=== PATIENT | female | born 1970 | race Hispanic/Latino ===

== ENCOUNTER 2021-12-07 14:32 | Emergency (ER) | payer SELFPAY ==
[2021-12-07 14:51] VITALS: BP 152/69; PULSE 82; RESP 20; TEMP 36.9; O2SAT 100
[2021-12-07 15:17] LABS: Add Manual Diff / Slide Review NO; Basophils Absolute Auto 0 /uL (0-100); Basophils Percent Auto 0.7 % (0-2); Eosinophils Absolute Auto 200 /uL (0-450); Eosinophils Percent Auto 3.2 % (2-4); Hematocrit 38.3 % (36-46); Hemoglobin 13.3 g/dL (12.0-16.0); Lymphocytes Absolute Auto 2500 /uL (1100-4500); Mean Corpuscular HGB Conc 34.9 % (30-36); Mean Corpuscular Hemoglobin 31.2 PG (26-34); Mean Corpuscular Volume 89.6 fL (80-100); Monocytes Absolute Auto 500 /uL (0-900); Monocytes Percent Auto 9.9 % (3-14); Neutrophils Absolute Auto 1900 /uL (1500-7000); Neutrophils Percent Auto 37.2 % (50-75); Platelet Count 209 X10^3/uL (150-400); Red Blood Cell Count 4.27 X10^6/uL (4.0-5.2)
[2021-12-07 15:28] LABS: Alanine Aminotransferase 32 IU/L (<35); Albumin 4.5 g/dL (3.5-5.0); Albumin Globulin Ratio 1.3 (1.0-2.8); Alkaline Phosphatase 56 U/L (38-126); Aspartate Aminotransferase 31 IU/L (14-36); Bilirubin Total 0.5 mg/dL (0.2-1.3); Blood Urea Nitrogen 20 mg/dL (7-17); Calcium 9.9 mg/dL (8.4-10.2); Carbon Dioxide 30 mmol/L (22-32); Chloride 103 mmol/L (98-107); Estimated Glomerular Filt Rate 58.2 mL/min (>60); Globulin 3.5 g/dL (1.7-4.1); Glucose 154 mg/dL (70-100); HEMOLYSIS < 15 (0-50); Lipase 205 U/L (23-300); Sodium 141 mmol/L (137-145)
--- NOTE | 2021-12-07 18:11 | ED_ITS ---
HPI - General Adult General Chief complaint: Abdominal Pain Stated complaint: Pain in Rt Side Time Seen by Provider: 12/07/21 18:11 Source: patient Mode of arrival: Ambulatory History of Present Illness HPI narrative: 51-year-old woman postmenopausal, history of hypertension controlled with metoprolol presents with 4 days of right upper quadrant pain radiating through to her back and the left upper quadrant. she is post cholecystectomy. She describes the pain as intermittent associated with a sense of being bloated and heavy through her abdomen. No fevers but she does have chills she notes that the pain is worse after eating and is associated with nausea but she has not actually had any emesis. She has not been particularly constipated but does have occasional hemorrhoids. Denies any blood in vomitus and has not recently h ad any black stools. She is having no chest pain, palpitations, headaches, focal neurologic findings. Related Data Home Medications Medication Instructions Recorded Confirmed norgestimate 0.25 mg-ethinyl 1 tab PO QDAY #0 12/05/17 estradiol 35 mcg tablet (Sprintec (28)) Allergies Allergy/AdvReac Type Severity Reaction Status Date / Time No Known Allergies Allergy Uncoded 02/08/18 12:07 Review of Systems Review of Systems Narrative: Remainder of complete review of systems is otherwise unremarkable except for that included in the HPI. Patient History Medical History (Updated 12/07/21 @ 20:53 by Cheryl Rowland MD) Hypertension Kidney stone on left side Surgical History (Updated 12/07/21 @ 18:39 by Cheryl Rowland MD) Status post cholecystectomy Social History Smoking Status: Never smoker Smoking Status: Never smoker Exam Initial Vital Signs Initial Vital Signs: Vital Signs Temperature 98.5 F 12/07/21 14:51 Pulse Rate 82 12/07/21 14:51 Respiratory Rate 20 12/07/21 14:51 Blood Pressure 152/69 H 12/07/21 14:51 Pulse Oximetry 100 12/07/21 14:51 General: Healthy appearing, in no acute distress. Able to give a complete and coherent history. Well-nourished well-developed HEENT: Moist mucous membranes, normal sclera with reactive pupils, Neck: No JVD, supple Respiratory: Lungs are clear to auscultation, no wheezing no rales no rhonchi. Full and symmetrical air movement Cardiac: Regular rate and rhythm no murmurs no bruits Abdomen: Soft, mild tenderness in the right upper quadrant without rebound or guarding. Good bowel tones, no flank pain Skin: Warm and dry, no rashes Neurologic: Grossly neurologically intact with no obvious asymmetries or abno rmalities Extremities: No trauma, well perfused Psych: Cooperative, appropriate insight and affect Course Orders Ordered: ED Orders 12/07/21 14:55 EKG-12 Lead Stat 12/07/21 15:02 Complete Blood Count AUTO DIFF Stat Comprehensive Metabolic Panel Stat Lipase Stat 12/07/21 18:39 CT abdomen pelvis w con Stat 12/07/21 20:16 UA dip and micro [Urinalysis and Microscopic] Stat Discontinued Medications Magnesium Citrate (Magnesium Citrate 300 Ml Solution) 300 ml PO NOW ONE Stop: 12/07/21 20:52 Vital Signs Vital signs: Vital Signs - 8 hr 12/07/21 14:51 Temperature 98.5 F Pulse Rate 82 Respiratory Rate 20 Blood Pressure 152/69 H Pulse Oximetry 100 Medical Decision Making Lab Data Result diagrams: 12/07/21 15:02 12/07/21 15:02 Labs: Lab Results 12/07/21 12/07/21 12/07/21 Range/Units 15:02 15:02 20:16 WBC 5.0 (4.5-11.0) X10^3/uL RBC 4.27 (4.0-5.2) X10^6/uL Hgb 13.3 (12.0-16.0) g/dL Hct 38.3 (36-46) % MCV 89.6 (80-100) fL MCH 31.2 (26-34) PG MCHC 34.9 (30-36) % RDW 13.0 (11.6-14.8) % Plt Count 209 (150-400) X10^3/uL Neut % (Auto) 37.2 L (50-75) % Lymph % (Auto) 49.0 H (25-40) % [place] % (Auto) 9.9 (3-14) % Eos % (Auto) 3.2 (2-4) % Baso % (Auto) 0.7 (0-2) % Neut # (Auto) 1900 (9297-3666) /uL Lymph # (Auto) 2500 (5626-7329) /uL [place]ancock # (Auto) 500 (0-900) /uL Eos # (Auto) 200 (0-450) /uL Baso # (Auto) 0 (0-100) /uL Sodium 141 (137-145) mmol/L Potassium 4.0 (3.4-5.1) mmol/L Chloride 103 (98-107) mmol/L Carbon Dioxide 30 (22-32) mmol/L BUN 20 H (7-17) mg/dL Creatinine 1.00 (0.52-1.04) mg/dL Estimated GFR 58.2 L (>60) mL/min BUN/Creatinine Ratio 20.0 (6-22) Glucose 154 H (70-100) mg/dL Calcium 9.9 (8.4-10.2) mg/dL Total Bilirubin 0.5 (0.2-1.3) mg/dL AST 31 (14-36) IU/L ALT 32 (<35) IU/L Alkaline Phosphatase 56 (38-126) U/L Total Protein 8.0 (6.3-8.2) g/dL Albumin 4.5 (3.5-5.0) g/dL Globulin 3.5 (1.7-4.1) g/dL Albumin/Globulin Ratio 1.3 (1.0-2.8) Lipase 205 (23-300) U/L Urine Color Yellow Urine Appearance Clear Urine pH 5.5 (4.5-8.0) Ur Specific [place] 1.025 (1.000-1.035) Urine Protein Negative (Negative) Urine Glucose (UA) Trace H (Negative) g/dL Urine Ketones Negative (NEGATIVE) Urine Occult Blood Trace-intact (Negative) Urine Nitrate Negative (Negative) Urine Bilirubin Negative (NEGATIVE) Urine Urobilinogen 0.2 (0.2) E.U./dL Ur Leukocyte Esterase Negative (NEGATIVE) Urine RBC None seen (0-5/HPF) Urine WBC None seen (0-5/HPF) Urine Bacteria None seen (None) Ur Culture Indicated? Cult not indicated Point of Care Testing Test Results Negative Urine Dip Bedside Urine Glucose Negative Bedside Urine Bilirubin - Negative Bedside Urine Ketone - Negative Urine Specific [place] 1.030 Bedside Urine Occult Blood - Negative Bedside Urine pH 6.0 Bedside Urine Protein +/- 15 Bedside Urine Urobilinogen - Negative Bedside Urine Nitrite - Negative Bedside Urine Leukocytes - Negative Esterase Point of care testing: Point of Care Testing Test Results Negative Urine Dip Bedside Urine Glucose Negative Bedside Urine Bilirubin - Negative Bedside Urine Ketone - Negative Urine Specific [place] 1.030 Bedside Urine Occult Blood - Negative Bedside Urine pH 6.0 Bedside Urine Protein +/- 15 Bedside Urine Urobilinogen - Negative Bedside Urine Nitrite - Negative Bedside Urine Leukocytes - Negative Esterase Imaging Data CT scan - abdomen/pelvis: Radiologist's Impression: FINDINGS:? Image quality:? Excellent.? ? Lung bases:? Left anterior lung base nodule measuring 9 mm diameter. Heart:? No significant findings. ? ABDOMEN: Liver:? Is enlarged and demonstrates diffusely decreased density, indicating fatty infiltration. Gallbladder:? Surgically absent? ? Biliary ducts:? Unremarkable.? ? Pancreas:? Unremarkable.? ? Spleen:? Unremarkable.? ? Adrenal Glands:? Unremarkable.? ? Kidneys and Ureters:? Nonobstructing 4 mm calculus within the inferior pole left kidney.? Renal enhancement within normal limits. ? Stomach and Bowel:? Stomach, small bowel loops, and colon are unremarkable.? Normal appendix. Peritoneum:? No abnormal intraperitoneal fluid.? No free air.? ? Ventral Wall: ? No hernias.? Abdominal Nodes:? No retroperitoneal or mesenteric adenopathy by size criteria.? Vessels:? Aorta is normal in size.? IVC appears collapsed. ? PELVIS: Pelvic Organs:? Unremarkable.? ? Bladder:? Unremarkable.? ? Pelvic Nodes: No enlarged lymph nodes.? Miscellaneous: No hernias are seen. ? ? ? Bones:? Unremarkable.? IMPRESSION:? 1. No explanation for right upper quadrant pain. 2. Normal appendix. 3. Nonobstructing left renal calculus. 4. Collapsed appearing IVC, possibly indicating hypotension.? Clinical correlation recommended. ? ? Dictated by: Desiree Mckeon M.D. on 12/07/2021 at 19:00? ?? MDM Narrative Medical decision making narrative: 51-year-old woman with upper abdominal pain a sense of bloating all for the past 5 days. Lab workup is very reassuring with no evidence of bleeding. She already has her gallbladder and appendix removed. CT scan shows no obvious explanation for her pain. Specifically there is no evidence of colitis, bowel obstruction, kidney stone causing obstruction or hydronephrosis, suggestion of neoplasm or any type of intra-abdominal abscess. She does have of moderate amount of stool throughout the right side of her colon. Will suggest magnesium citrate and see if cleaning her entire colon out helps alleviate her symptoms. Reassurance is given and she is safe for home discharge Discharge Plan Departure Patient Disposition: Home Clinical Impression: Abdominal pain, Constipation Instructions: DI for Abdominal Pain-Adult, DI for Constipation Activity Restrictions/Additional Instructions: Thank you for coming in today You do not have an infection, kidney stone, cancer, diverticulitis or other life threatening abnormality to explain your abdominal pain You do have a lot of stool throughout your colon. I suspect this can be co ntributing to your pain You when you get home, please drink the entire bottle of magnesium citrate and see if cleaning out your colon gets rid of your pain. If you are still having pain after this, please follow-up with your doctor on [facility] I wish you the best Reena por venir hoy No tiene servando infecci?n, c?lculos renales, c?ncer, diverticulitis u otra anomal?a potencialmente mortal que explique rodgers dolor abdominal. Tiene muchas heces en todo el colon. Sospecho que esto puede estar contribuyendo a rodgers dolor. Cuando llegue a casa, gus toda la botella de citrato de magnesio y lulu si la limpieza de rodgers colon elimina rodgers dolor. Si a?n tiene dolor despu?s de esto, orestes un seguimiento con rodgers m?dico en la [place]. te deseo lo mejor Prescriptions: No Action norgestimate-ethinyl estradiol [Sprintec (28)] 1 EACH tablet 1 tab PO QDAY Qty: 0 0RF Referrals: David Carolina MD [Primary Care Provider] -
--- NOTE | 2021-12-07 18:39 | DI.CT.S_ITS ---
PROCEDURE: CT ABDOMEN PELVIS W CON INDICATIONS: Right upper abdominal pain TECHNIQUE: After the administration of intravenous contrast, axial sections acquired from the lung bases to the pubic symphysis. Coronal and sagittal reformats were performed. For radiation dose reduction, the following was used: automated exposure control, adjustment of mA and/or kV according to patient size. COMPARISON: None. FINDINGS: Image quality: Excellent. Lung bases: Left anterior lung base nodule measuring 9 mm diameter. Heart: No significant findings. ABDOMEN: Liver: Is enlarged and demonstrates diffusely decreased density, indicating fatty infiltration. Gallbladder: Surgically absent Biliary ducts: Unremarkable. Pancreas: Unremarkable. Spleen: Unremarkable. Adrenal Glands: Unremarkable. Kidneys and Ureters: Nonobstructing 4 mm calculus within the inferior pole left kidney. Renal enhancement within normal limits. Stomach and Bowel: Stomach, small bowel loops, and colon are unremarkable. Normal appendix. Peritoneum: No abnormal intraperitoneal fluid. No free air. Ventral Wall: No hernias. Abdominal Nodes: No retroperitoneal or mesenteric adenopathy by size criteria. Vessels: Aorta is normal in size. IVC appears collapsed. PELVIS: Pelvic Organs: Unremarkable. Bladder: Unremarkable. Pelvic Nodes: No enlarged lymph nodes. Miscellaneous: No hernias are seen. Bones: Unremarkable. IMPRESSION: 1. No explanation for right upper quadrant pain. 2. Normal appendix. 3. Nonobstructing left renal calculus. 4. Collapsed appearing IVC, possibly indicating hypotension. Clinical correlation recommended. Dictated by: Desiree Mckeon M.D. on 12/07/2021 at 19:00 Approved by: Desiree Mckeon M.D. on 12/07/2021 at 19:01
[2021-12-07 20:20] LABS: Appearance Urine UA CLEAR; Bilirubin Urine UA NEGATIVE (NEGATIVE); Color Urine UA YELLOW; Glucose Urine UA TRACE g/dL (Negative); Ketones Urine UA NEGATIVE (NEGATIVE); Leukocyte Esterase Urine UA NEGATIVE (NEGATIVE); Nitrite Urine UA NEGATIVE (Negative); Occult Blood Urine UA TRACE-INTACT (Negative); Protein Urine UA NEGATIVE (Negative); Specific Gravity Urine UA 1.025 (1.000-1.035); Urobilinogen Urine UA 0.2 E.U./dL (0.2)
[2021-12-07 20:49] LABS: pH Urine UA 5.5 (4.5-8.0)
[2021-12-07 20:52] LABS: Bacteria Urine None Seen; Culture Indicated Urine Cult Not Indicated; RBC Urine None Seen (0-5/HPF); WBC Urine None Seen (0-5/HPF)
[2021-12-07] MEDS: MAGNESIUM CITRATE 300 ML SOLUTION PO (20:55)
== END 2021-12-07 20:58 | disposition home or self-care (01) ==
PROVIDERS: Emergency Medicine; Emergency Provider Emergency Medicine; Family Provider Family Medicine; PCP Family Medicine
DX: R10.11 Right upper quadrant pain (principal); K59.00 Constipation, unspecified
CPT/HCPCS: 36415; 74177; 80053; 81001; 81003; 81025; 83690; 85025; 93005; 93010; 99284; Q9967

== ENCOUNTER → 2022-01-13 08:32 | Outpatient (CLI) | payer SELFPAY ==
[2022-01-13 18:53] LABS: Appearance Urine UA CLEAR; Bilirubin Urine UA NEGATIVE (NEGATIVE); Color Urine UA YELLOW; Glucose Urine UA NEGATIVE (Negative); Ketones Urine UA NEGATIVE (NEGATIVE); Leukocyte Esterase Urine UA NEGATIVE (NEGATIVE); Nitrite Urine UA NEGATIVE (Negative); Occult Blood Urine UA NEGATIVE (Negative); Protein Urine UA NEGATIVE (Negative); Urobilinogen Urine UA 0.2 E.U./dL (0.2)
[2022-01-13 18:55] LABS: Bacteria Urine None Seen; Culture Indicated Urine Cult Not Indicated; RBC Urine None Seen (0-5/HPF); Squamous Epithelial Cell Urine 5-10 /HPF (0-5/HPF); WBC Urine None Seen (0-5/HPF)
[2022-01-13 18:58] LABS: Alanine Aminotransferase 31 IU/L (<35); Albumin 4.7 g/dL (3.5-5.0); Albumin Globulin Ratio 1.5 (1.0-2.8); Alkaline Phosphatase 59 U/L (38-126); Aspartate Aminotransferase 29 IU/L (14-36); BUN Creatinine Ratio 21.7 (6-22); Bilirubin Total 1.3 mg/dL (0.2-1.3); Blood Urea Nitrogen 20 mg/dL (7-17); Calcium 9.8 mg/dL (8.4-10.2); Carbon Dioxide 28 mmol/L (22-32); Chloride 103 mmol/L (98-107); Estimated Glomerular Filt Rate > 60.0 mL/min (>60); Globulin 3.1 g/dL (1.7-4.1); Glucose 114 mg/dL (70-100); HEMOLYSIS < 15 (0-50); Potassium 4.5 mmol/L (3.4-5.1); Sodium 139 mmol/L (137-145); Total Protein 7.8 g/dL (6.3-8.2)
[2022-01-13 19:14] LABS: Add Manual Diff / Slide Review NO; Basophils Absolute Auto 0 /uL (0-100); Basophils Percent Auto 0.8 % (0-2); Eosinophils Absolute Auto 100 /uL (0-450); Eosinophils Percent Auto 2.2 % (2-4); Hematocrit 40.5 % (36-46); Hemoglobin 13.7 g/dL (12.0-16.0); Lymphocytes Absolute Auto 2400 /uL (1100-4500); Mean Corpuscular HGB Conc 33.7 % (30-36); Mean Corpuscular Hemoglobin 30.7 PG (26-34); Mean Corpuscular Volume 91.1 fL (80-100); Monocytes Absolute Auto 400 /uL (0-900); Monocytes Percent Auto 8.2 % (3-14); Neutrophils Absolute Auto 2300 /uL (1500-7000); Neutrophils Percent Auto 43.8 % (50-75); Platelet Count 213 X10^3/uL (150-400); Red Blood Cell Count 4.45 X10^6/uL (4.0-5.2); Red Cell Distribution Width 12.9 % (11.6-14.8); White Blood Cell Count 5.2 X10^3/uL (4.5-11.0)
[2022-01-13 19:45] LABS: Hemoglobin A1C% w Est Avg Glu 6.6 % (4.0-6.0)
== END ==
PROVIDERS: Family Provider Family Medicine; PCP Family Medicine; Visit Provider Physician Assistant Medical
DX: K29.50 Unspecified chronic gastritis without bleeding (principal); K64.9 Unspecified hemorrhoids; M79.604 Pain in right leg; M79.605 Pain in left leg; N20.0 Calculus of kidney; R10.9 Unspecified abdominal pain; Z90.49 Acquired absence of other specified parts of digestive tract
CPT/HCPCS: 80053; 81001; 83036; 84443; 85025

== ENCOUNTER → 2022-01-18 09:25 | Outpatient (CLI) | payer SELFPAY ==
[2022-01-20 09:41] LABS: Fecal Immunochemical Test Negative (Negative)
== END ==
PROVIDERS: Family Provider Family Medicine; PCP Physician Assistant Medical; Visit Provider Physician Assistant Medical
DX: K64.9 Unspecified hemorrhoids (principal); N20.0 Calculus of kidney; Z90.49 Acquired absence of other specified parts of digestive tract; R10.9 Unspecified abdominal pain; M79.604 Pain in right leg; M79.605 Pain in left leg
CPT/HCPCS: 82274

== ENCOUNTER → 2022-03-08 12:52 | Outpatient (CLI) | payer SELFPAY ==
--- NOTE | 2022-03-08 12:53 | DI.US.S_ITS ---
PROCEDURE: US ABDOMEN COMPLETE INDICATIONS: ABDOMINAL PAIN TECHNIQUE: Real-time scanning was performed of the abdominal and retroperitoneal organs, with image documentation. COMPARISON: [facility], US, ABDOMEN COMPLETE, 05/25/2016, 10:35. FINDINGS: Liver: Liver is normal in size and moderately diffusely hyperechoic. There is slight parenchymal heterogeneity but no discrete mass. Hepatopetal flow in the portal vein. Gallbladder: The gallbladder is surgically absent. Biliary ducts: Intrahepatic bile ducts are non-dilated. Extrahepatic bile duct caliber measures 4.0 mm. Normal is 6-7 mm or less in diameter, or 10 mm or less post-cholecystectomy. Pancreas: Visualized portions of the pancreas are sonographically normal. Spleen: Spleen is normal in size and homogeneous in echotexture. Kidneys: Kidneys are normal in size and echotexture. Right kidney measures 11.0 cm long; left kidney measures 9.6 cm long. Possible nonobstructing stone in the mid and lower left kidney, the largest measuring up to 9 mm. No hydronephrosis in either kidney. No solid masses. Aorta: Visualized aorta is normal in caliber at less than 3 cm. Iliacs: Proximal common iliac arteries are normal in caliber at less than 2.5 cm. IVC: Intrahepatic inferior vena cava is patent. Miscellaneous: In the area of periumbilical pain, there is no evidence of recurrent hernia. Shadowing mesh is redemonstrated. IMPRESSION: 1. Increase in hepatic hyperechogenicity and heterogeneity suggesting steatosis or other progressive hepatocellular disease. 2. Cholecystectomy. 3. No evidence of recurrent umbilical hernia post repair. Dictated by: Maribell Larios M.D. on 03/08/2022 at 17:06 Approved by: Maribell Larios M.D. on 03/08/2022 at 17:10
== END ==
PROVIDERS: Family Provider Family Medicine; PCP Physician Assistant Medical; Referring Provider Physician Assistant Medical; Visit Provider Physician Assistant Medical
DX: R10.84 Generalized abdominal pain (principal); Z90.49 Acquired absence of other specified parts of digestive tract
CPT/HCPCS: 76700

== ENCOUNTER → 2022-04-08 11:29 | Outpatient (CLI) | payer SELFPAY ==
[2022-04-08 18:41] LABS: Add Manual Diff / Slide Review NO; Basophils Absolute Auto 0 /uL (0-100); Basophils Percent Auto 0.3 % (0-2); Eosinophils Absolute Auto 200 /uL (0-450); Eosinophils Percent Auto 3.5 % (2-4); Hematocrit 39.6 % (36-46); Hemoglobin 13.8 g/dL (12.0-16.0); Lymphocytes Absolute Auto 1700 /uL (1100-4500); Lymphocytes Percent Auto 25.4 % (25-40); Mean Corpuscular HGB Conc 34.8 % (30-36); Mean Corpuscular Volume 89.2 fL (80-100); Monocytes Absolute Auto 600 /uL (0-900); Monocytes Percent Auto 9.2 % (3-14); Neutrophils Absolute Auto 4200 /uL (1500-7000); Neutrophils Percent Auto 61.6 % (50-75); Platelet Count 170 X10^3/uL (150-400); Red Blood Cell Count 4.44 X10^6/uL (4.0-5.2); Red Cell Distribution Width 12.6 % (11.6-14.8); White Blood Cell Count 6.7 X10^3/uL (4.5-11.0)
== END ==
PROVIDERS: Family Provider Family Medicine; PCP Physician Assistant Medical; Visit Provider Physician Assistant Medical
DX: J06.9 Acute upper respiratory infection, unspecified (principal)
CPT/HCPCS: 85025

== ENCOUNTER → 2022-05-13 13:07 | Outpatient (CLI) | payer SELFPAY ==
--- NOTE | 2022-05-14 16:45 | DIAB.INIT ---
Initial Diabetes Education Assessment Name: Monae Alfaro Date: 05/13/22 Time: 1:20p Dx: Type II diabetes Preferred Learning Style: Hands on/doing Ava presents with and 12 y/o son. Her preferred language is Wolof. Telephonic machine rough rounder was used during this visit. [place] background. New diagnosis of T2Dm with HgA1c of 6.6% FH of DM with sister and both parents Has made some diet change. Reduced sugar and fat intake. Endorses wt loss of 12#. 159# at last doctor Has many questions today: genetics vs lifestyle ; GDM hx on her and son ; diet reccs ; DM impact on organs When had GDM. Wonders how her son may be impacted. 12 years ago. Questions about Dm and impact of organs, ie kidneys Wondering what she can eat for breakfst. Currently eating ebbs, bread, sometimes cereal. Financial concerns to be considered. States she has a rep at the [facility] helping her figure out insurance and medical care. Physical Activity: Walking every day Self-Monitoring Blood Glucose: None Diabetes Medications: Metformin 500 mg Pertinent Labs: HgA1c 6.6% Past Medical History: (Last Updated 03/22/22 @ 10:13 by Ruel Limon DO) Cough Encounter for surveillance of contraceptive pills Hypertension Kidney stone on left side Neoplasm of uncertain behavior Scleral hemorrhage of right eye Screening for breast cancer Screening for cervical cancer Screening for diabetes mellitus Screening for lipid disorders Intervention: This participant was very receptive. Provided appropriate educational handouts. Discussed the following topics: Completed intake assessment. Discussed barriers to care. Brief pathophysiology of type 2 diabetes Genetic nature of T2DM GDM hx increasing risk of T2DM HgA1c in brief Plate Method Breakfast ideas General recommended servings for carbohydrates at meals and snacks Role of physical activity Complications related to DM and how to reduce risk by managing BG Difference between T1 v T2 DM Created SMART goals for patient self-care and success. Goals: Read handouts at home that were reviewed in clinic today Follow plate method for meals Follow-up: [facility] follow-up in 3 weeks virtually Brooke Zhou RDN, HELGA Certified Diabetes Care and Security Assurance Analyst P: [phone] Thank you for this referral
== END ==
PROVIDERS: Family Provider Family Medicine; PCP Physician Assistant Medical; Referring Provider Physician Assistant Medical; Visit Provider Physician Assistant Medical
DX: E11.9 Type 2 diabetes mellitus without complications (principal); Z71.3 Dietary counseling and surveillance; Z79.84 Long term (current) use of oral hypoglycemic drugs
CPT/HCPCS: G0108

== ENCOUNTER → 2022-06-01 15:35 | Outpatient (CLI) | payer SELFPAY ==
--- NOTE | 2022-06-02 17:47 | DIAB.FU ---
Follow-up Diabetes Education Assessment Name: Monae Alfaro Date: 06/02/22 Time: 340-440p Dx: Type II Diabetes Monae presents for follow-up virtually via [employer] platform and using a telephonic shuttle threader for Pashto. States that this diet has been very difficult because she craves eating carbs. Has been fairly strict about carb intake, avoiding most carbs outside of fruit. States she feels this diet is a sacrifice. Unclear if this is sustainable for her. Has questions about how many tortillas she can have. Also wondering how much sweet bread ?raji? she can consume with 8 oz milk. Diet recall: Wake: 530-7a 815-830a: 2-3 TBS raw oats with [place] juice and water, eggs, cheese, 2 spoons beans, avocado ; sandwich, cheese, milk x8oz 11a: seeds 12-1p: Fruit (1 peach or banana, berries), vegetables or salad 3p: 1 x fruit 530-6p: chicken, salad or veggies, 1 tortilla sometimes Sn: cereal (morning summit or oat crunch) x 1c with milk Prior to diagnosis, 3 tortillas, <1c rice with fish, veggies, salad. She has cut back significantly. Today she also has questions regarding a supplemental shake that claims for help with diabetes and fatty liver. Physical Activity: has family in town and has been walking with them. Walks outdoor court 2-3 x per week and aims for [address] Self-Monitoring Blood Glucose: None Diabetes Medications: 500mg Metformin Pertinent Labs: HgA1c 6.6% Past Medical History: (Last Updated 03/22/22 @ 10:13 by Ruel Limon DO) Cough Encounter for surveillance of contraceptive pills Hypertension Kidney stone on left side Neoplasm of uncertain behavior Scleral hemorrhage of right eye Screening for breast cancer Screening for cervical cancer Screening for diabetes mellitus Screening for lipid disorders Intervention: This participant was very receptive. Provided appropriate educational handouts. Discussed the following topics: Review of general nutrition recommendations and current intake Carb counting, label reading for net carbs Physical activity plan and impact on blood sugars Created SMART goals for patient self-care and success. Goals: Read handouts at home that were reviewed in clinic today Follow plate method for meals Cheerios keep to half cup but morning summit full cup - new Try to keep carbs to 30-45g at meals - new Pair carbs and protein at meals and snacks - new Walking daily - new Follow-up: [facility] follow-up in 3-4 weeks Brooke Zhou RDN, HELGA Certified Diabetes Care and Scalemaker P: [phone] Thank you for this referral
== END ==
PROVIDERS: Family Provider Family Medicine; PCP Physician Assistant Medical; Referring Provider Physician Assistant Medical; Visit Provider Physician Assistant Medical
DX: E11.9 Type 2 diabetes mellitus without complications (principal); Z79.84 Long term (current) use of oral hypoglycemic drugs; Z71.3 Dietary counseling and surveillance
CPT/HCPCS: G0108

== ENCOUNTER → 2022-06-23 11:27 | Outpatient (CLI) | payer SELFPAY ==
[2022-06-23 20:43] LABS: COVID19 - ORCAS (NP or Nasal) Negative (Negative)
== END ==
PROVIDERS: Family Provider Family Medicine; PCP Physician Assistant Medical; Visit Provider Physician Assistant
DX: Z20.822 Contact with and (suspected) exposure to COVID-19 (principal); Z01.812 Encounter for preprocedural laboratory examination
CPT/HCPCS: U0003

== ENCOUNTER → 2022-07-07 09:46 | Outpatient (CLI) | payer SELFPAY ==
[2022-07-07 19:38] LABS: Add Manual Diff / Slide Review NO; Basophils Absolute Auto 0 /uL (0-100); Basophils Percent Auto 0.4 % (0-2); Eosinophils Absolute Auto 100 /uL (0-450); Eosinophils Percent Auto 2.1 % (2-4); Hematocrit 39.7 % (36-46); Hemoglobin 13.6 g/dL (12.0-16.0); Lymphocytes Absolute Auto 2100 /uL (1100-4500); Lymphocytes Percent Auto 41.8 % (25-40); Mean Corpuscular HGB Conc 34.3 % (30-36); Mean Corpuscular Hemoglobin 30.5 PG (26-34); Mean Corpuscular Volume 89.1 fL (80-100); Monocytes Absolute Auto 300 /uL (0-900); Monocytes Percent Auto 6.1 % (3-14); Neutrophils Absolute Auto 2500 /uL (1500-7000); Neutrophils Percent Auto 49.6 % (50-75); Platelet Count 174 X10^3/uL (150-400); Red Blood Cell Count 4.46 X10^6/uL (4.0-5.2); Red Cell Distribution Width 12.5 % (11.6-14.8)
[2022-07-07 19:52] LABS: Hemoglobin A1C% w Est Avg Glu 5.9 % (4.0-6.0)
[2022-07-07 20:04] LABS: Alanine Aminotransferase 28 IU/L (<35); Albumin 4.3 g/dL (3.5-5.0); Albumin Globulin Ratio 1.4 (1.0-2.8); Alkaline Phosphatase 59 U/L (38-126); Aspartate Aminotransferase 28 IU/L (14-36); BUN Creatinine Ratio 24.1 (6-22); Bilirubin Total 0.9 mg/dL (0.2-1.3); Blood Urea Nitrogen 21 mg/dL (7-17); Calcium 9.5 mg/dL (8.4-10.2); Carbon Dioxide 26 mmol/L (22-32); Chloride 103 mmol/L (98-107); Cholesterol 199 mg/dL (140-199); Estimated Glomerular Filt Rate > 60 mL/min (>60); Globulin 3.1 g/dL (1.7-4.1); Glucose 112 mg/dL (70-100); HDL Cholesterol 41 mg/dL (40-60); HEMOLYSIS < 15 (0-50); LDL Cholesterol Calculated 117 mg/dL (<100); Potassium 4.3 mmol/L (3.4-5.1); Sodium 141 mmol/L (137-145); Total Protein 7.4 g/dL (6.3-8.2); Triglycerides 204 mg/dL (35-150)
[2022-07-07 20:24] LABS: TSH w/ Reflex to FT4 2.71 uIU/mL (0.47-4.68)
== END ==
PROVIDERS: Family Provider Family Medicine; PCP Physician Assistant Medical; Visit Provider Physician Assistant Medical
DX: E11.9 Type 2 diabetes mellitus without complications (principal); G62.9 Polyneuropathy, unspecified; I10 Essential (primary) hypertension; K76.9 Liver disease, unspecified
CPT/HCPCS: 80053; 80061; 83036; 84443; 85025

== ENCOUNTER → 2022-11-17 09:40 | Outpatient (CLI) | payer SELFPAY ==
[2022-11-17 20:40] LABS: Alanine Aminotransferase 22 IU/L (<35); Alkaline Phosphatase 65 U/L (38-126); Aspartate Aminotransferase 23 IU/L (14-36); BUN Creatinine Ratio 18.3 (6-22); Bilirubin Total 1.1 mg/dL (0.2-1.3); Blood Urea Nitrogen 17 mg/dL (7-17); Calcium 9.2 mg/dL (8.4-10.2); Carbon Dioxide 26 mmol/L (22-32); Chloride 103 mmol/L (98-107); Cholesterol 136 mg/dL (140-199); Estimated Glomerular Filt Rate > 60 mL/min (>60); Glucose 92 mg/dL (70-100); HDL Cholesterol 46 mg/dL (40-60); HEMOLYSIS < 15 (0-50); LDL Cholesterol Calculated 71 mg/dL (<100); Potassium 4.1 mmol/L (3.4-5.1); Sodium 138 mmol/L (137-145); Total Protein 7.4 g/dL (6.3-8.2); Triglycerides 94 mg/dL (35-150)
[2022-11-18 02:21] LABS: Hemoglobin A1C% w Est Avg Glu 5.7 % (4.0-6.0)
[2022-11-19 16:48] LABS: Albumin 4.3 g/dL (3.5-5.0); Albumin Globulin Ratio 1.4 (1.0-2.8); Globulin 3.1 g/dL (1.7-4.1)
== END ==
PROVIDERS: Family Provider Family Medicine; PCP Physician Assistant Medical; Visit Provider Physician Assistant
DX: E11.9 Type 2 diabetes mellitus without complications (principal); E78.2 Mixed hyperlipidemia; R73.9 Hyperglycemia, unspecified
CPT/HCPCS: 80053; 80061; 83036

== ENCOUNTER → 2023-02-03 09:03 | Outpatient (CLI) | payer SELFPAY ==
[2023-02-03 20:12] LABS: Alanine Aminotransferase 29 IU/L (<35); Albumin 4.4 g/dL (3.5-5.0); Albumin Globulin Ratio 1.3 (1.0-2.8); Alkaline Phosphatase 59 U/L (38-126); Aspartate Aminotransferase 28 IU/L (14-36); BUN Creatinine Ratio 19.1 (6-22); Bilirubin Total 1.6 mg/dL (0.2-1.3); Blood Urea Nitrogen 17 mg/dL (7-17); Calcium 9.7 mg/dL (8.4-10.2); Carbon Dioxide 28 mmol/L (22-32); Chloride 100 mmol/L (98-107); Cholesterol 137 mg/dL (140-199); Estimated Glomerular Filt Rate > 60 mL/min (>60); Globulin 3.5 g/dL (1.7-4.1); Glucose 95 mg/dL (70-100); HDL Cholesterol 52 mg/dL (40-60); HEMOLYSIS < 15 (0-50); LDL Cholesterol Calculated 62 mg/dL (<100); Potassium 4.2 mmol/L (3.4-5.1); Sodium 136 mmol/L (137-145); Total Protein 7.9 g/dL (6.3-8.2); Triglycerides 115 mg/dL (35-150)
[2023-02-05 04:26] LABS: Labcorp Hemoglobin (Hb) A1c 6.1 % (4.8-5.6)
[2023-02-07 14:01] LABS: Interpretation Negative (Negative)
== END ==
PROVIDERS: Family Provider Family Medicine; PCP Physician Assistant Medical; Visit Provider Physician Assistant Medical
DX: E11.9 Type 2 diabetes mellitus without complications (principal); E78.2 Mixed hyperlipidemia; I10 Essential (primary) hypertension; K76.9 Liver disease, unspecified; R73.9 Hyperglycemia, unspecified; A04.8 Other specified bacterial intestinal infections
CPT/HCPCS: 80053; 80061; 83013; 83036

== ENCOUNTER → 2023-07-26 10:50 | Outpatient (CLI) | payer SELFPAY ==
--- NOTE | 2023-07-26 | DI.NM.S_ITS ---
PROCEDURE: NM SINA PERF SPECT REST & STR Rest and exercise myocardial perfusion SPECT with gated imaging and ejection fraction RADIOPHARMACEUTICAL: 11.1 mCi Tc-99m sestamibi IV at rest and 25.2 mCi Tc-99m sestamibi IV at peak exercise. A [id number] was performed. INDICATIONS: CHEST PAIN TECHNIQUE: Radiopharmaceutical was injected at peak stress test, and also at rest. SPECT images were obtained. SPECT myocardial perfusion images were displayed in short axis, horizontal long axis, and vertical long axis views. Gated images were reviewed using [employer] software. COMPARISON: None. CARDIAC STRESS: A standard Geoff treadmill exercise tolerance test was performed by the patient under the supervision of an attending staff. The patient exercised for 8 minutes and 0 seconds; 10.1 METS; functional aerobic impairment (JOSHUA) is -7%. Hemodynamic data: There is normal blood pressure and heart rate response to exercise stress. Patient achieved 102% of maximum predicted heart rate at peak exercise. Maximum blood pressure 160/60. Symptoms: Patient denied chest pain during exercise. EKG: Rest ECG sinus rhythm. Exercise ECG sinus tachycardia, 1.5 to [address] segment depressions leads II, III, aVF, V4 to V6. FINDINGS: Raw data: There is good myocardial labeling by radiotracer. No significant motion artifacts. Sxuf-ku-mhbda ratio is 0.32 (normal is less than 0.38 for sestamibi tracer, and less than 0.50 for thallium tracer). Left ventricle function: Gated images demonstrate normal left ventricle wall thickening. No segmental wall motion abnormality. No transient ischemic dilation; TID is 0.84 (normal less than 1.3). The left ventricle resting end-diastolic volume is 64 mL. Left ventricle stress ejection fraction is >75%; normal values are above 45%. Myocardial perfusion: There is normal distribution of activity in the left and right ventricular myocardium. No fixed or reversible perfusion defects. IMPRESSION: Low risk study. No evidence of exercise-induced ischemia on SPECT imaging. Normal LV size with hyperdynamic function. False positive exercise ECG. Normal hemodynamic response. Good exercise capacity. Dictated by: Marci Lozano D.O. on 07/26/2023 at 17:02 Approved by: Marci Lozano D.O. on 07/26/2023 at 17:07
== END ==
PROVIDERS: Family Provider Family Medicine; PCP Physician Assistant Medical; Referring Provider Internal Medicine Cardiovascular Disease; Visit Provider Internal Medicine Cardiovascular Disease
DX: R07.2 Precordial pain (principal)
CPT/HCPCS: 78452; 93017; A9502

== ENCOUNTER → 2023-09-08 12:01 | Outpatient (CLI) | payer SELFPAY ==
--- NOTE | 2023-09-08 | DI.MG.S_ITS ---
UNILATERAL LEFT DIGITAL DIAGNOSTIC MAMMOGRAM 3D/2D WITH ADDITIONAL VIEWS: 09/08/2023 CLINICAL: Additional evaluation requested from prior study. Comparison is made to exams dated: 07/16/2023 mammogram - outside location, 10/27/2020 mammogram - [facility], and 07/23/2019 mammogram - [facility]. The left breast is heterogeneously dense, which may obscure small masses (category c / 51-75% glandular tissue). Prior asymmetry and area of architectural distortion are no longer seen in the left breast at 2 o'clock. No significant masses, calcifications, or other findings are seen in the breast. IMPRESSION: INCOMPLETE: NEEDS ADDITIONAL IMAGING EVALUATION Resolution of screening mammography abnormality with additional views. Ultrasound evaluation to confirm resolution is recommended and was performed immediately following this exam. Based on the Tyrer Cuzick model (a risk assessment model) the patient's lifetime risk is 8.5% and her 10 year risk is 2.4%. According to the ACR, ACS, and NCCN guidelines, an annual breast MRI exam along with mammogram is recommended if the patient's lifetime risk is 20% or greater. This exam was interpreted at Station ID: [id number]. NOTE: For mammograms, a report in lay terms will be sent to the patient. Approximately 15% of breast malignancies will not be visualized mammographically. In the management of a palpable breast mass, a negative mammogram must not discourage biopsy of a clinically suspicious lesion. Electronically Signed By: Maribell pennintgon/:09/08/2023 12:43:09 ACR BI-RADS Category 0: Incomplete 3340F
--- NOTE | 2023-09-08 | DI.US.S_ITS ---
LIMITED ULTRASOUND OF LEFT BREAST: 09/08/2023 CLINICAL: Additional views of left breast. Comparison is made to exams dated: 09/08/2023 mammogram - [facility], 07/16/2023 mammogram - outside location, 10/27/2020 mammogram - [facility], 07/23/2019 mammogram - [facility], 07/23/2019 mammogram - outside location, and 07/17/2018 mammogram - [facility]. Color flow ultrasound of the left breast upper outer quadrant was performed. [place] scale images of the real-time examination were reviewed. No sonographic finding to correspond to the screening mammography finding of possible architectural distortion. There is a benign 6 mm anechoic cyst in the left breast at 3 o'clock posterior depth. This correlates as an incidental finding. IMPRESSION: BENIGN There is no abnormality seen in the left breast to correspond with the resolved architectural distortion in the upper outer quadrant. The incidental 6 mm cyst in the left breast is consistent with a simple cyst and is benign. Return to annual mammogram screening schedule is recommended. Findings and recommendations were conveyed to the patient at time of exam. This exam was interpreted at Station ID: [id number]. Electronically Signed By: Maribell pennington/:09/08/2023 13:05:22 letter sent: Normal Exam Ultrasound BI-RADS: 2 Benign
[2023-09-08 14:36] LABS: TSH w/ Reflex to FT4 1.57 uIU/mL (0.47-4.68)
[2023-09-08 14:57] LABS: Alanine Aminotransferase 35 IU/L (<35); Albumin 4.5 g/dL (3.5-5.0); Albumin Globulin Ratio 1.4 (1.0-2.8); Alkaline Phosphatase 63 U/L (38-126); Aspartate Aminotransferase 33 IU/L (14-36); BUN Creatinine Ratio 21.6 (6-22); Bilirubin Total 1.4 mg/dL (0.2-1.3); Blood Urea Nitrogen 16 mg/dL (7-17); Calcium 10.3 mg/dL (8.4-10.2); Carbon Dioxide 24 mmol/L (22-32); Chloride 103 mmol/L (98-107); Cholesterol 150 mg/dL (140-199); Estimated Glomerular Filt Rate > 60 mL/min (>60); Globulin 3.2 g/dL (1.7-4.1); Glucose 89 mg/dL (70-100); HDL Cholesterol 48 mg/dL (40-60); HEMOLYSIS 19 (0-50); LDL Cholesterol Calculated 84 mg/dL (<100); Potassium 4.7 mmol/L (3.4-5.1); Sodium 139 mmol/L (137-145); Total Protein 7.7 g/dL (6.3-8.2); Triglycerides 92 mg/dL (35-150)
[2023-09-08 18:08] LABS: Creatinine Urine Random 26.5 mg/dL
[2023-09-08 18:15] LABS: Microalbumin Urine Random < 0.6 mg/dL (0-1.6)
== END ==
PROVIDERS: Family Provider Family Medicine; PCP Physician Assistant Medical; Referring Provider Physician Assistant Medical; Visit Provider Physician Assistant Medical
DX: R92.8 Other abnormal and inconclusive findings on diagnostic imaging of breast (principal); N60.02 Solitary cyst of left breast; E11.42 Type 2 diabetes mellitus with diabetic polyneuropathy; E11.69 Type 2 diabetes mellitus with other specified complication; E78.5 Hyperlipidemia, unspecified; K29.50 Unspecified chronic gastritis without bleeding; I10 Essential (primary) hypertension; R10.9 Unspecified abdominal pain
CPT/HCPCS: 36415; 76642; 77065; 80053; 80061; 82043; 82570; 83036; 84443; G0279

== ENCOUNTER → 2023-09-20 11:22 | Outpatient (CLI) | payer SELFPAY ==
[2023-09-24 12:29] LABS: Calcium 9.5 mg/dL (8.7-10.2); Parathyroid Hormone, Intact 52 pg/mL (15-65)
== END ==
PROVIDERS: Family Provider Family Medicine; PCP Physician Assistant Medical; Visit Provider Physician Assistant Medical
DX: E83.52 Hypercalcemia (principal)
CPT/HCPCS: 82310; 83970

== ENCOUNTER → 2024-01-17 08:24 | Outpatient (CLI) | payer OTHER, SELFPAY ==
[2024-01-17 19:16] LABS: Alanine Aminotransferase 36 IU/L (<35); Albumin 4.3 g/dL (3.5-5.0); Albumin Globulin Ratio 1.4 (1.0-2.8); Alkaline Phosphatase 56 U/L (38-126); Aspartate Aminotransferase 30 IU/L (14-36); BUN Creatinine Ratio 16.5 (6-22); Bilirubin Total 1.2 mg/dL (0.2-1.3); Blood Urea Nitrogen 16 mg/dL (7-17); Carbon Dioxide 29 mmol/L (22-32); Chloride 106 mmol/L (98-107); Cholesterol 151 mg/dL (140-199); Estimated Glomerular Filt Rate > 60 mL/min (>60); Globulin 3.1 g/dL (1.7-4.1); Glucose 100 mg/dL (70-100); HDL Cholesterol 48 mg/dL (40-60); HEMOLYSIS < 15 (0-50); LDL Cholesterol Calculated 81 mg/dL (<100); Potassium 4.9 mmol/L (3.4-5.1); Sodium 140 mmol/L (137-145); Total Protein 7.4 g/dL (6.3-8.2); Triglycerides 108 mg/dL (35-150)
[2024-01-17 19:22] LABS: Creatinine Urine Random 162.7 mg/dL
[2024-01-17 19:29] LABS: Microalbumi Creatinin Ratio Ur 4.3 ug/mg CR (<30); Microalbumin Urine Random 0.7 mg/dL (0-1.6)
[2024-01-17 19:55] LABS: Hemoglobin A1C% w Est Avg Glu 5.8 % (4.0-6.0)
== END ==
PROVIDERS: Family Provider Family Medicine; PCP Physician Assistant Medical; Visit Provider Physician Assistant Medical
DX: E11.42 Type 2 diabetes mellitus with diabetic polyneuropathy (principal)
CPT/HCPCS: 80053; 80061; 82043; 82570; 83036

== ENCOUNTER → 2024-04-12 09:06 | Outpatient (CLI) | payer SELFPAY ==
[2024-04-12 19:16] LABS: Add Manual Diff / Slide Review NO; Alanine Aminotransferase 24 IU/L (<35); Albumin 4.5 g/dL (3.5-5.0); Albumin Globulin Ratio 1.5 (1.0-2.8); Alkaline Phosphatase 63 U/L (38-126); Aspartate Aminotransferase 28 IU/L (14-36); BUN Creatinine Ratio 22.1 (6-22); Basophils Absolute Auto 0 /uL (0-100); Basophils Percent Auto 0.2 % (0-2); Bilirubin Total 1.2 mg/dL (0.2-1.3); Blood Urea Nitrogen 21 mg/dL (7-17); Carbon Dioxide 28 mmol/L (22-32); Chloride 104 mmol/L (98-107); Cholesterol 145 mg/dL (140-199); Eosinophils Absolute Auto 100 /uL (0-450); Eosinophils Percent Auto 2.8 % (2-4); Estimated Glomerular Filt Rate > 60 mL/min (>60); Globulin 3.1 g/dL (1.7-4.1); Glucose 97 mg/dL (70-100); HDL Cholesterol 57 mg/dL (40-60); HEMOLYSIS < 15 (0-50); Hematocrit 38.1 % (36-46); Hemoglobin 13.1 g/dL (12.0-16.0); LDL Cholesterol Calculated 70 mg/dL (<100); Lymphocytes Absolute Auto 2100 /uL (1100-4500); Lymphocytes Percent Auto 44.8 % (25-40); Mean Corpuscular HGB Conc 34.5 % (30-36); Mean Corpuscular Hemoglobin 31.3 PG (26-34); Mean Corpuscular Volume 90.8 fL (80-100); Monocytes Absolute Auto 400 /uL (0-900); Monocytes Percent Auto 8.4 % (3-14); Neutrophils Absolute Auto 2000 /uL (1500-7000); Neutrophils Percent Auto 43.8 % (50-75); Platelet Count 203 X10^3/uL (150-400); Potassium 4.7 mmol/L (3.4-5.1); Red Blood Cell Count 4.19 X10^6/uL (4.0-5.2); Red Cell Distribution Width 12.7 % (11.6-14.8); Sodium 138 mmol/L (137-145); Total Protein 7.6 g/dL (6.3-8.2); Triglycerides 89 mg/dL (35-150); White Blood Cell Count 4.6 X10^3/uL (4.5-11.0)
[2024-04-12 19:36] LABS: Hemoglobin A1C% w Est Avg Glu 5.5 % (4.0-6.0)
== END ==
PROVIDERS: Family Provider Family Medicine; PCP Physician Assistant Medical; Visit Provider Physician Assistant Medical
DX: Z12.11 Encounter for screening for malignant neoplasm of colon (principal); Z12.12 Encounter for screening for malignant neoplasm of rectum; E11.42 Type 2 diabetes mellitus with diabetic polyneuropathy; E11.69 Type 2 diabetes mellitus with other specified complication; E78.5 Hyperlipidemia, unspecified; K29.50 Unspecified chronic gastritis without bleeding; I10 Essential (primary) hypertension; E83.52 Hypercalcemia
CPT/HCPCS: 80053; 80061; 83036; 85025

== ENCOUNTER → 2024-09-12 09:31 | Outpatient (CLI) | payer SELFPAY ==
[2024-09-12 19:17] LABS: Alanine Aminotransferase 24 IU/L (<35); Albumin 4.3 g/dL (3.5-5.0); Albumin Globulin Ratio 1.3 (1.0-2.8); Alkaline Phosphatase 75 U/L (38-126); Aspartate Aminotransferase 32 IU/L (14-36); BUN Creatinine Ratio 19.1 (6-22); Bilirubin Total 1.6 mg/dL (0.2-1.3); Blood Urea Nitrogen 18 mg/dL (7-17); Calcium 9.9 mg/dL (8.4-10.2); Carbon Dioxide 24 mmol/L (22-32); Chloride 101 mmol/L (98-107); Cholesterol 159 mg/dL (140-199); Estimated Glomerular Filt Rate > 60 mL/min (>60); Globulin 3.4 g/dL (1.7-4.1); Glucose 108 mg/dL (70-100); HDL Cholesterol 55 mg/dL (40-60); HEMOLYSIS 19 (0-50); LDL Cholesterol Calculated 83 mg/dL (<100); Potassium 4.3 mmol/L (3.4-5.1); Sodium 134 mmol/L (137-145); Total Protein 7.7 g/dL (6.3-8.2); Triglycerides 105 mg/dL (35-150)
[2024-09-12 19:24] LABS: Hemoglobin A1C% w Est Avg Glu 6.1 % (4.0-6.0)
[2024-09-12 19:48] LABS: TSH w/ Reflex to FT4 2.69 uIU/mL (0.47-4.68)
== END ==
PROVIDERS: Family Provider Family Medicine; PCP Physician Assistant Medical; Visit Provider Physician Assistant Medical
DX: E78.5 Hyperlipidemia, unspecified (principal); E11.42 Type 2 diabetes mellitus with diabetic polyneuropathy; E11.69 Type 2 diabetes mellitus with other specified complication; M25.549 Pain in joints of unspecified hand; I10 Essential (primary) hypertension
CPT/HCPCS: 80053; 80061; 83036; 84443

== ENCOUNTER → 2025-02-06 08:30 | Outpatient (CLI) | payer SELFPAY ==
[2025-02-08 13:11] LABS: Fecal Immunochemical Test Negative (Negative)
== END ==
PROVIDERS: PCP Physician Assistant Medical; Visit Provider Physician Assistant Medical
DX: Z12.11 Encounter for screening for malignant neoplasm of colon (principal); Z12.12 Encounter for screening for malignant neoplasm of rectum; E11.42 Type 2 diabetes mellitus with diabetic polyneuropathy; I10 Essential (primary) hypertension; E83.52 Hypercalcemia; K29.50 Unspecified chronic gastritis without bleeding; E78.5 Hyperlipidemia, unspecified; E11.69 Type 2 diabetes mellitus with other specified complication
CPT/HCPCS: 82274

== ENCOUNTER → 2025-08-14 10:03 | Outpatient (CLI) | payer SELFPAY ==
[2025-08-14 19:27] LABS: Add Manual Diff / Slide Review NO; Hematocrit 37.9 % (36-46); Hemoglobin 13.1 g/dL (12.0-16.0); Lymphocytes Absolute Auto 2000 /uL (1100-4500); Mean Corpuscular HGB Conc 34.6 % (30-36); Mean Corpuscular Hemoglobin 30.8 PG (26-34); Mean Corpuscular Volume 89.1 fL (80-100); Platelet Count 205 X10^3/uL (150-400)
[2025-08-14 20:02] LABS: Alanine Aminotransferase 25 IU/L (<35); Albumin 4.7 g/dL (3.5-5.0); Albumin Globulin Ratio 1.5 (1.0-2.8); Alkaline Phosphatase 71 U/L (38-126); Blood Urea Nitrogen 21 mg/dL (7-17); Calcium 9.8 mg/dL (8.4-10.2); Carbon Dioxide 25 mmol/L (22-32); Chloride 101 mmol/L (98-107); Cholesterol 158 mg/dL (140-199); Estimated Glomerular Filt Rate > 60 mL/min (>60); Globulin 3.1 g/dL (1.7-4.1); Glucose 108 mg/dL (70-99); HDL Cholesterol 55 mg/dL (40-60); HEMOLYSIS 16 (0-50); Potassium 4.6 mmol/L (3.4-5.1); Sodium 135 mmol/L (137-145); Total Protein 7.8 g/dL (6.3-8.2); Triglycerides 95 mg/dL (35-150)
[2025-08-14 20:10] LABS: Hemoglobin A1C% w Est Avg Glu 6.3 % (4.0-6.0)
[2025-08-14 20:26] LABS: TSH w/ Reflex to FT4 3.63 uIU/mL (0.47-4.68)
== END ==
PROVIDERS: PCP Physician Assistant Medical; Visit Provider Physician Assistant Medical
DX: E11.69 Type 2 diabetes mellitus with other specified complication (principal); E78.5 Hyperlipidemia, unspecified; E11.42 Type 2 diabetes mellitus with diabetic polyneuropathy; E83.52 Hypercalcemia; I10 Essential (primary) hypertension; R20.0 Anesthesia of skin
CPT/HCPCS: 80053; 80061; 82043; 82570; 83036; 84443; 85025